=== PATIENT | female | born 1995 | race Caucasian/White ===

== ENCOUNTER 2021-01-05 07:33 | Emergency (ER) | payer OTHER ==
[~2021-01-05] VITALS: Ht 157.5 cm; Wt 47.2 kg
[2021-01-05 07:49] VITALS: Ht 157.5 cm; Wt 47.2 kg
[2021-01-05 10:04] VITALS: BP 105/62
== END 2021-01-05 10:04 | disposition home or self-care (01) ==
LOC: ED 07:33
DX: S30.0XXA Contusion of lower back and pelvis, initial encounter (principal); W18.30XA Fall on same level, unspecified, initial encounter; Y93.23 Activity, snow (alpine) (downhill) skiing, snowboarding, sledding, tobogganing and snow tubing; Y92.488 Other paved roadways as the place of occurrence of the external cause; Y99.8 Other external cause status